=== PATIENT | female | born 1995 | race American Indian/Alaskan Native ===

== ENCOUNTER 2016-08-07 18:37 | Outpatient (CLI) | payer SELFPAY ==
[2016-08-07] MEDS ORDERED: LACTATED RINGERS 500 ML IV ONE (18:59)
[2016-08-07 19:13] VITALS: BP 100/47
[2016-08-07 19:23] LABS: Urine Drugs of Abuse Note Disclamer
[2016-08-07 19:30] LABS: Bilirubin,Urine NEG (Negative); Blood,Urine NEG (Negative); Ketones,Urine NEG (Negative); Leukocyte Esterase,Urine TR (Negative); Mucus,Urine FEW /HPF; Nitrite,Urine NEG (Negative); Protein,Urine <15 mg/dL mg/dL (Negative); RBC,Urine < 1.0 /HPF (0.0-6.0); Urobilinogen,Urine < 2.0 mg/dL (<2.0)
--- NOTE | 2016-08-10 12:56 | Ultrasound Report ---
OB ULTRASOUND: HISTORY: well being. TECHNIQUE: Transabdominal ultrasound with Doppler interrogation. Gestation: lynch Position: breech Amniotic Fluid: WNL < 24 weeks, subjective Placenta: anterior Placental Grade: 0 Heart Rate: 156 BPM Cervical length: 3.4 cm (Normal > 3 cm) NEUROANATOMY VISUALIZED: Choroid Plexus Cisterna Magnum Cerebellum Lateral Ventricle ANATOMY VISUALIZED: Stomach Bladder Diaphragm Heart 3 Vessel Cord Abd. Cord Insert SPINE VISUALIZED: Limited spine due to position BPD: 5.4 cm = 22 w 3 d HC: 20.1 cm = 22 w 1 d AC: 18.0 cm = 22 w 6 d FL: 4.0 cm = 22 w 6 d Estimated Weight: 558 grams LMP: uncertain US Gest. Age = 22 w 4 d EDC: 12-07-
== END 2016-08-07 20:17 | disposition home or self-care (01) ==
LOC: TRG 18:37
PROVIDERS: ATTEND Obstetrics & Gynecology
DX: O32.1XX0 Maternal care for breech presentation, not applicable or unspecified (principal); Z3A.22 22 weeks gestation of pregnancy
CPT/HCPCS: 76805; 80307; 81001

== ENCOUNTER 2021-06-23 20:01 | Emergency (ER) | payer MEDICAID ==
[2021-06-23 20:36] VITALS: BP 118/66
[2021-06-23] MEDS ORDERED: HYDROcodone/ACETAMINOPHEN 5-325 MG TAB PO STA (22:46)
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
== END 2021-06-24 01:10 | disposition home or self-care (01) ==
LOC: ED 20:01
DX: S09.90XA Unspecified injury of head, initial encounter (principal); S80.02XA Contusion of left knee, initial encounter; Z87.891 Personal history of nicotine dependence; Y09 Assault by unspecified means; Y93.89 Activity, other specified; Y92.89 Other specified places as the place of occurrence of the external cause; Y99.8 Other external cause status
CPT/HCPCS: 70450; 99284